=== PATIENT | male | born 1975 | race Caucasian/White ===

== ENCOUNTER 2018-08-29 07:59 | Day surgery (SDC) | payer BC ==
[2018-08-28 16:49] VITALS: BMI 25.0
[~2018-08-29 07:59] MED LIST: LACTATED RINGERS SOLUTION 1,000 ML IV SCH; ONDANSETRON 4 MG/2 ML VIAL IVPUSH PRN
--- NOTE | 2018-08-29 08:05 | HP ---
Satellite [facility] [place] - Chief Complaint Chief Complaint: right knee pain/instability - Past Medical History Allergies/Adverse Reactions: Allergies Allergy/AdvReac Type Severity Reaction Status Date / Time No Known Allergies Allergy Verified 08/28/18 16:43 - Current Medications Current Medications: Home Medications Medication Instructions Recorded Atorvastatin Ca [Lipitor] 10 mg PO HS 08/28/18 Ezetimibe [Zetia -] 10 mg PO DAILY 08/28/18 Oxycodone HCl/Acetaminophen 1 tab PO Q6H #20 tablet MDD 4 08/29/18 [Percocet 5-325 mg Tablet] Satellite Physical Exam - Physical Examination General Appearance: Well Nourished, Well Developed, Alert & Oriented x3 ENT: Clear Lung: Normal air movement Heart: Regular rate & rhythm Extremities: Other (right knee- + swelling, + ttp, decr rom, + oly, + ant draw, + pivot, nvi MRI + acl rupture) Neurological: Intact, Alert, Oriented Satellite Impression/Plan - Impression/Plan Impression: right knee acl rupture Operative Procedure: right knee arthroscopy with ACL reconstruction using graftlink allograft Date to be Performed: 08/29/18
[2018-08-29] MEDS ORDERED: BUPIVACAINE HCL/PF 0.5% (5MG/ML) 10 ML VIAL ONE ×2 (08:15)
[2018-08-29] MEDS ORDERED: MIDAZOLAM HCL 2 MG/2 ML SINGLE DOSE VIAL ONE ×2 (08:16)
[2018-08-29] MEDS ORDERED: LIDOCAINE HCL/PF 2% SDV 5ML VIAL ONE (08:33)
[2018-08-29] MEDS ORDERED: DEXAMETHASONE SOD PHOSPHATE 4 MG/1 ML VIAL ONE (08:33)
[2018-08-29] MEDS ORDERED: ceFAZolin SODIUM 1 GM VIAL ONE (08:33)
[2018-08-29] MEDS ORDERED: SODIUM CHLORIDE 0.9% P/F 10 ML VIAL IJ ONE (08:33)
[2018-08-29] MEDS ORDERED: PROPOFOL 20 ML ONE (08:49)
[2018-08-29] MEDS ORDERED: ceFAZolin SODIUM 1 GM VIAL IVPB ONE (09:16)
[2018-08-29] MEDS ORDERED: KETOROLAC TROMETHAMINE 30 MG/1 ML VIAL ONE (09:51)
[2018-08-29] MEDS ORDERED: BUPIVACAINE HCL/PF (5 MG/ML) 30 ML VIAL IJ ONE (10:04)
--- NOTE | 2018-08-29 10:18 | OP ---
Operative Note - Note: Operative Date: 08/29/18 ([facility]) Pre-Operative Diagnosis: right acl rupture Operation: right knee arthroscopy with ACL reconstruction using graftlink allograft Implants: arthrex graftlink Post-Operative Diagnosis: Same as Pre-op Surgeon: Simon Marti Caseworker: Jeison Mccarthy Anesthesiologist/SURGICAL SERVICES TECH: Edil Coto Anesthesia: General, Local Specimens Removed: shavings Estimated Blood Loss (mls): 5 Operative Report Dictated: Yes
--- NOTE | 2018-08-29 10:58 | SPEC ---
DATE OF OPERATION: 08/29/2018 PREOPERATIVE DIAGNOSIS: Right anterior cruciate ligament tear. POSTOPERATIVE DIAGNOSIS: Right anterior cruciate ligament tear. PROCEDURE: Right anterior cruciate ligament reconstruction with GraftLink. SURGICAL ATTENDING: Simon Marti MD [employer] SERGEANT: SHERMAN Alvarado ANESTHESIA: Regional and general. CLOSURE: An Arthrex GraftLink of appropriate length and 3-0 nylon for skin. ESTIMATED BLOOD LOSS: Negligible. COMPLICATIONS: None. CONDITION: To recovery room stable condition. DESCRIPTION OF OPERATIVE PROCEDURE: Patient taken to the operating room on August 29, 2018. Regional and general anesthesia was administered by the anesthesiologist. IV Kefzol was administered prophylactically prior to the case. The right lower extremity was prepped and draped in the usual sterile fashion. The superomedial and medial and lateral infrapatellar portal sites were made with a 15 blade followed by a blunt trocar. The outflow portal was superomedially. The scope portal was the inferolateral and the working portal was the inferomedial portal. The scope was placed in the inferolateral portal and up in the suprapatellar pouch. Pouch was visualized to be clean. The medial and lateral gutters were visualized to be clean. The undersurface of the patella and trochlea were visualized to be intact. With valgus stress on the knee, the medial compartment was entered and the medial meniscus was visualized, probed and found to be intact. The medial femoral condyle was run and found to be intact as was the medial tibial plateau. In the figure-4 position, the lateral compartment was entered. The lateral meniscus was visualized, probed, found to be intact. The lateral femoral condyle was run and found to be intact as was the lateral tibial plateau. At 90 degrees, the ACL was visualized and found to be completely torn and shredded with a stump anteriorly. This was debrided using the shaver. A notchplasty was then performed, again insufficient width and height of the notch to perform the procedure. The PCL was visualized to be intact. Using the [id number] guide and an inside-out reaming with a flip cutter, a 10-mm tunnel was made in the posterior aspect of the notch with a depth of approximately 25 mm, preserving the outer cortex. Through this tunnel was passed a shuttle suture made of an Arthrex FiberStick from outside in, exiting the portal. Next, using a tibial guide, a tibial tunnel was made just anterior to the PCL to a depth of about 30 mm inside the tibia, preserving the lateral cortex. This was done by an inside-out technique using a flip cutter as well. Through this tunnel as well was passed a FiberStick suture which was used as a shuttling suture exiting the portal as well. The GraftLink graft was prepared on the back table with a button in place and the appropriate markings on the graft. Two shuttle sutures were used to pull the graft into the knee through the inferomedial portal, one limb up in the femoral tunnel, one limb down the tibial tunnel. The femoral tunnel button was hooked on the lateral cortex. The knee was cycled. The graft was toggled up into a depth of at least 20 mm. With the knee in extension, the tibial graft was toggled using a button as well on the anteromedial cortex. At this time, the knee was cycled through, going from full extension to full flexion with excellent tension of the ACL throughout and good crossing of the PCL. Sutures were cut snug. The graft was ensured to not impede on any part of the notch and throughout the range of motion found to have good tension. The incisions were all closed with 3-0 nylon interrupted horizontal mattress sutures. A sterile pressure dressing and a knee immobilizer were applied. Patient awakened from anesthesia and transferred to recovery in stable condition. Taz [id number]
[2018-08-29] MEDS ORDERED: CEFAZOLIN 1 GM/D5W 1 GM/50 ML BAG ONE (12:09)
[2018-08-29 12:45] VITALS: TEMP 97.5
[2018-08-29 14:47] VITALS: BP 108/60; PULSE 64
[2018-08-29] MEDS ORDERED: CEFAZOLIN 1 GM in DEXTROSE 5%-WATER - 50 ML IVPB ONE (15:00)
--- NOTE | 2018-09-01 13:48 | PATH ---
Surgical Pathology Report Patient Name: MARIO ALBERTO ROBBINS Med. Rec. #: [id number] /Age/Gender: 1975 (Age: 42) / M Account: [id number] Location: [facility] SURGICAL Taken: 08/29/2018 Received: 08/29/2018 Reported: 09/01/2018 Physicians: Simon Marti M.D. Specimen(s) Received RIGHT KNEE SHAVINGS Clinical History Tear right ACL Final Diagnosis RIGHT KNEE SHAVINGS: FIBROSYNOVIAL TISSUE WITH FIBROSIS AND DEGENERATIVE CHANGE. SEPARATE FRAGMENTS OF BONE WITH NO SIGNIFICANT PATHOLOGIC CHANGE. Electronically Signed Minesh Mac M.D. Gross Description Received in formalin, labeled "right knee shavings," is a 5.0 x 3.8 x 0.7 cm. aggregate of chavez-yellow soft tissue fragments. A farm loan representative portion is submitted in one cassette. /08/29/201808/29/2018
== END 2018-08-29 14:53 | disposition home or self-care (01) ==
LOC: JASU-SURG 07:59
PROVIDERS: ATTEND Orthopaedic Surgery
PROC: 0MQN4ZZ Repair Right Knee Bursa and Ligament, Percutaneous Endoscopic Approach (ICD-10-PCS; principal; 2018-08-29 09:00)
DX: S83.511A Sprain of anterior cruciate ligament of right knee, initial encounter (principal); X58.XXXA Exposure to other specified factors, initial encounter; Y93.9 Activity, unspecified; Y92.9 Unspecified place or not applicable; Y99.9 Unspecified external cause status
CPT/HCPCS: 88304-TC; 94760; 97116-GP